=== PATIENT | female | born 1965 | race Caucasian/White ===

== ENCOUNTER → 2020-05-30 10:10 | Outpatient (BNVA) | payer SELFPAY | PROVIDERS: Visit Provider Internal Medicine ==

== ENCOUNTER → 2021-06-09 10:00 | Outpatient (BNVA) | payer SELFPAY | PROVIDERS: Visit Provider Internal Medicine | DX: Z02.79 Encounter for issue of other medical certificate (principal) ==

== ENCOUNTER → 2022-06-08 09:58 | Outpatient (BNVA) | payer SELFPAY | PROVIDERS: Visit Provider Internal Medicine | DX: Z02.79 Encounter for issue of other medical certificate (principal) ==

== ENCOUNTER → 2023-06-09 10:10 | Outpatient (BNVA) | payer SELFPAY | PROVIDERS: Visit Provider Physician Assistant | DX: Z02.79 Encounter for issue of other medical certificate (principal) ==

== ENCOUNTER 2024-04-24 09:43 | Outpatient (AMB) | payer BC, SELFPAY ==
--- NOTE | 2024-04-24 08:51 | A.OFFPC_ITS ---
Vital Signs 04/24/24 09:46 Height 5 ft 4 in Weight 210 lb 2 oz BMI 36.1 BP 142/94 H Blood Pressure Location Rt brachial Position Sitting Pulse 92 Pulse Source Pulse Oximeter Pulse Oximetry (%) 93 Oxygen Delivery Method Room Air Intake Visit Reasons: [id number] Allergies Sulfa (Sulfonamide Antibiotics) Allergy (Intermediate, Verified 04/24/24 09:50) Rash Tobacco use date assessed: 04/24/24 Dental Screening Dental Screen Date: 04/24/24 Did you have a dental visit in the last 12 months?: Yes Did you have a dental problem in the last 6 months where you did not have access to dental care?: No Was dental information given to patient?: Patient has dentist HPI HPI Comments History of Present Illness Details Patient is a 58 year female history of IBS allergic rhinitis kidney stones presenting for follow-up IBS C: Has used lactulose as needed past for constipation. She started to make fruit smoothies in the morning and now is more regula.She tried to use berries initially as lower carb but found this to be too many seeds. Nephrolithiasis: Follows with Dr. Vasqeuz Allergic rhinitis she continues on daily Zyrtec Exercising more. Trying to eat less sweets. Will have cake on special occasions Preventive Colonoscopy: 2016 Kathy Mammo 01/2024 b/l breast us-6 month recommend Pap 12/2022 ROS CONSTITUTIONAL: Denies weight loss, fever and chills. HEENT: Denies changes in vision and hearing. RESPIRATORY: Denies SOB and cough. CV: Denies palpitations and CP GI: Denies abdominal pain, nausea, vomiting and diarrhea. : Denies dysuria and urinary frequency. MSK: Denies new myalgia and joint pain. SKIN: Denies rash and pruritus. NEUROLOGICAL: Denies headache PSYCHIATRIC: Denies recent changes in mood. PHYSICAL EXAM: GENERAL: Alert and oriented x 3. NAD EYES: EOMI. Anicteric. HENT: Moist mucous membranes. No scleral icterus. No cervical lymphadenopathy. LUNGS: Clear to auscultation bilaterally. CARDIOVASCULAR: Regular rate and rhythm. No murmur. No JVD. ABDOMEN: Soft, non-tender +bs EXTREMITIES: No edema. Non-tender. SKIN: No rashes or lesions. Warm. NEUROLOGIC: No focal neurological deficits. CN II-XII grossly intact PSYCHIATRIC: Cooperative. Appropriate mood and affect [facility] Medical History (Updated 04/24/24 @ 15:36 by Usha Sorenson MD) Skin cancer of face Surgical History (Updated 04/24/24 @ 15:36 by Usha Sorenson MD) History of lumpectomy of right breast Family History (Updated 04/24/24 @ 09:54 by Clover Bryant CMA) Father Pancreatic cancer Paternal Grandmother Stroke Social History (Updated 04/24/24 @ 09:52 by Clover Bryant CMA) Household Members: Family Housing: House Alcohol intake: current Alcohol intake frequency: holidays/special occasions only Patient Tobacco Use Status: Current everyday Tobacco user Cigarettes Per Day: 4 Years Smoked: 8 e-Cigarette/Vaping Use: Never Used [employer] service: No Current occupational status: employed ([employer] Cognitive needs: No Hearing needs: No Vision needs: Yes Questionnaire PHQ-9 Over the last 2 weeks, how often have you been bothered by any of the following problems? 1. Little interest or pleasure in doing things: not at all 2. Feeling down, depressed, or hopeless: not at all 3. Trouble falling or staying asleep, or sleeping too much: not at all 4. Feeling tired or having little energy: not at all 5. Poor appetite or overeating: not at all 6. Feeling bad about yourself - or that you are a failure or have let yourself or your family down: not at all 7. Trouble concentrating on things, such as reading the newspaper or watching television: not at all 8. Moving or speaking so slowly that other people could have noticed. Or the opposite - being so fidgety or restless that you have been moving around a lot more than usual: not at all 9. Thoughts that you would be better off or of hurting yourself in some way: not at all Total score: 0 Depression Screening Interpretation: Negative (neg) Depression Screening Done: Yes Source: Developed by Drs. Navin Ibarra, Mony Cardenas, Dante Portillo and colleagues, with an educational remigio from [employer]. Thrive Questionnaire Date Thrive assessed: 04/24/24 I am a: Patient What is your living situation today?: I have a steady place to live Within the past 12 months, did the food you bought not last and you didn't have the money to get more?: Never true Within the past 12 months, did you worry whether your food would run out before you got money to buy more?: Never true Do you have trouble paying for medicines?: No Do you have trouble getting transportation to medical appointments?: No Do you have trouble paying your heating and electricity bill?: No Do you have trouble taking care of your child, family member or friend?: No Do you have trouble with day-to-day activities such as bathing, preparing meals, shopping, managing finances, etc.?: No Are you currently unemployed and looking for a job?: No Are you interested in more education?: No THRIVE Score: 0 AUDIT C Alcohol Use Questionnaire (AUDIT-C) 1. How often do you have a drink containing alcohol?: Monthly or less 3. How often do you have six or more drinks on one occasion?: Never Total Score: 1 KENDALL-7 AMB Questionnaire KENDALL-7 Date KENDALL - 7 assessed: 04/24/24 Feeling nervous, anxious, or on edge: 0 = Not at all Not being able to stop or control worryin = Not at all Worrying too much about different things: 0 = Not at all Trouble relaxin = Not at all Being so restless that it is hard to sit still: 0 = Not at all Becoming easily annoyed or irritable: 0 = Not at all Feeling afraid as if something awful might happen: 0 = Not at all Total KENDALL-7 score (0-4 normal; 5-9 mild; 10-14 moderate; 15-21 severe): 0 Source: Developed by Drs. Navin Ibarra, Mony Cardenas, Dante Portillo and colleagues, with an educational remigio from [employer]. KENDALL-7 Assessment Billing KENDALL-7 Assessment Tool: KENDALL-7 Assessment 77152 Physical exam (Primary Care) Vital Signs: Last Vital Signs Pulse 92 04/24/24 09:46 BP 142/94 H 04/24/24 09:46 Pulse Ox 93 04/24/24 09:46 Oxygen Delivery Method Room Air 04/24/24 09:46 BMI result Body Mass Index 36.1 Tobacco/Smoking Status: Tobacco use Status Tobacco use date assessed 04/24/24 04/24/24 09:58 Patient Tobacco Use Status Current everyday Tobacco 04/24/24 09:58 e-Cigarette/Vaping Use Never Used 04/24/24 09:58 PHQ-9: PHQ-9 Score PHQ-9: Total score 0 04/24/24 10:05 Depression Screening Interpretation: Negative (neg) Thrive Assessment: Date of Thrive Assessment Date Thrive assessed 04/24/24 04/24/24 09:58 Assessment and Plan Assessment & Plan (1) Irritable bowel syndrome (IBS): Code(s): K58.9 - Irritable bowel syndrome without diarrhea Qualifiers: Irritable bowel syndrome type: with constipation Qualified Code(s): K58.1 - Irritable bowel syndrome with constipation Plan: Improved bowel movements with increased fiber (2) History of lumpectomy of right breast: Code(s): Z98.890 - Other specified postprocedural states Plan: UTD breast screening (3) Elevated glucose: Code(s): R73.09 - Other abnormal glucose Plan: Labs ordered Orders: Orders Comprehensive Met. Panel Today R73.09 - Other abnormal glucose Hemoglobin A1c Today R73.09 - Other abnormal glucose Coding Level of Care Code Est Pt Level 4 (60255) Complex EM visit Add On G2211 Diagnoses Irritable bowel syndrome with constipation K58.1 Irritable bowel syndrome type: with constipation History of lumpectomy of right breast Z98.890 Elevated glucose R73.09 Additional Codes KENDALL-7 Assessment Billing - KENDALL-7 Assessment Tool: KENDALL-7 Assessment [id number] ([id number])
[2024-04-24 09:46] VITALS: BP 142/94; PULSE 92; O2SAT 93; BMI 36.1
== END 2024-04-24 10:32 | disposition home or self-care (01) ==
PROVIDERS: PCP Internal Medicine; Visit Provider Internal Medicine
DX: K58.1 Irritable bowel syndrome with constipation (principal); Z98.890 Other specified postprocedural states; R73.09 Other abnormal glucose

== ENCOUNTER → 2024-04-24 09:43 | Outpatient (BNVA) | payer BC, SELFPAY | PROVIDERS: Visit Provider Internal Medicine | DX: K58.1 Irritable bowel syndrome with constipation (principal); R73.09 Other abnormal glucose | CPT/HCPCS: 96127 ==

== ENCOUNTER 2024-04-24 10:38 | Outpatient (REF) | payer BC, SELFPAY ==
[2024-04-24 14:38] LABS: Estimated Average Glucose 134 mg/dL; Hemoglobin A1c % 6.3 % (<6.0); Total Hemoglobin (HGBA1C) 3890.8868 umol/L
[2024-04-24 14:42] LABS: Alanine Aminotransferase 19 U/L (0-31); Albumin Level 4.5 g/dL (3.5-5.0); Alkaline Phosphatase 56 U/L (39-117); Anion Gap 12 (12-20); Aspartate Amino Transferase 15 U/L (5-31); Bilirubin Total 0.3 mg/dL (0.0-1.0); Blood Urea Nitrogen 13 mg/dL (9-16); Calcium 9.5 mg/dL (8.4-10.2); Carbon Dioxide 29 mmol/L (22-29); Chloride 103 mmol/L (96-108); Estimated Glomerular Filt Rate > 60; Glucose Random 97 mg/dL (60-115); Sodium 140 mmol/L (135-145); Total Protein 7.2 g/dL (6.5-8.0)
== END 2024-04-24 10:39 | disposition home or self-care (01) ==
LOC: HO.WFDLDS 10:38
PROVIDERS: Visit Provider Internal Medicine
DX: R73.09 Other abnormal glucose (principal)
CPT/HCPCS: 36415; 80053; 83036

== ENCOUNTER → 2024-05-17 09:52 | Outpatient (BNVA) | payer SELFPAY | PROVIDERS: PCP Internal Medicine; Visit Provider Physician Assistant Medical | DX: Z02.79 Encounter for issue of other medical certificate (principal) ==

== ENCOUNTER 2025-02-20 14:29 | Outpatient (AMB) | payer BC, SELFPAY ==
--- NOTE | 2025-02-20 14:34 | A.OFFPC_ITS ---
Vital Signs 02/20/25 14:38 Height 5 ft 4 in Weight 212 lb 2 oz BMI 36.4 BP 118/74 Blood Pressure Location Rt brachial Position Sitting Respiration 14 Pulse 88 Pulse Source Pulse Oximeter Temp 98.4 F Temp Source Oral Intake Visit Reasons: knee pain Intake Note: Right knee pain Spindle Carver Required: No Allergies Sulfa (Sulfonamide Antibiotics) Allergy (Intermediate, Verified 02/20/25 14:36) Rash Tobacco use date assessed: 02/20/25 Dental Screening Dental Screen Date: 02/20/25 Did you have a dental visit in the last 12 months?: Yes Did you have a dental problem in the last 6 months where you did not have access to dental care?: No Was dental information given to patient?: Patient has dentist HPI HPI Comments History of Present Illness Details Patient is a 58 year female history of IBS allergic rhinitis, kidney stones, prediabetes presenting for follow-up Right knee pain for the past year. Increasing in severity. Is stopping her from exercising. sometimes get knee swelling right ankle swelling. History of right ankle pain. No redness of warmth. no inciting injury IBS C: Has used lactulose as needed past for constipation. Has improved diet and so has had less constipation Nephrolithiasis: Follows with Dr. Vasquez Allergic rhinitis she continues on daily Zyrtec Exercising more. Trying to eat less sweets. Last A1C was 6.3% Preventive Colonoscopy: 2016 Kathy Mammo UTD Pap 12/2022 ROS see HPI PHYSICAL EXAM: GENERAL: Alert and oriented x 3. NAD EYES: EOMI. Anicteric. HENT: Moist mucous membranes. No scleral icterus. No cervical lymphadenopathy. LUNGS: Clear to auscultation bilaterally. CARDIOVASCULAR: Regular rate and rhythm. No murmur. No JVD. ABDOMEN: Soft, non-tender +bs MSK: Mild crepitus, pes anserine fullness, no laxity, no warmth or redness EXTREMITIES: No edema. Non-tender. SKIN: No rashes or lesions. Warm. NEUROLOGIC: No focal neurological deficits. CN II-XII grossly intact PSYCHIATRIC: Cooperative. 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 1. Little interest or pleasure in doing things: not at all 2. Feeling down, depressed, or hopeless: not at all 3. Trouble falling or staying asleep, or sleeping too much: not at all 4. Feeling tired or having little energy: not at all 5. Poor appetite or overeating: not at all 6. Feeling bad about yourself - or that you are a failure or have let yourself or your family down: not at all 7. Trouble concentrating on things, such as reading the newspaper or watching television: not at all 8. Moving or speaking so slowly that other people could have noticed. Or the opposite - being so fidgety or restless that you have been moving around a lot more than usual: not at all 9. Thoughts that you would be better off or of hurting yourself in some way: not at all Total score: 0 Depression Screening Interpretation: Negative Depression Screening Done: Yes 06820 - PHQ-9 Billing: Yes Source: Developed by Drs. Navin Ibarra, Mony Cardenas, Dante Portillo and colleagues, with an educational remigio from [employer]. Thrive Questionnaire Date Thrive assessed: 02/15/25 I am a: Patient What is your living situation today?: I have a place to live, but I am worried about losing it in the future Within the past 12 months, did the food you bought not last and you didn't have the money to get more?: Never true Within the past 12 months, did you worry whether your food would run out before you got money to buy more?: Never true Do you have trouble paying for medicines?: No Do you have trouble getting transportation to medical appointments?: No Do you have trouble paying your heating and electricity bill?: No Do you have trouble taking care of your child, family member or friend?: No Do you have trouble with day-to-day activities such as bathing, preparing meals, shopping, managing finances, etc.?: No Are you currently unemployed and looking for a job?: No Are you interested in more education?: No Please select the resources that you would like help with: None Currently or been in a relationship where the following occur: I choose not to answer THRIVE Score: 1 AUDIT C Alcohol Use Questionnaire (AUDIT-C) 1. How often do you have a drink containing alcohol?: Monthly or less 2. How many drinks containing alcohol do you have on a typical day when you are drinking?: 1 or 2 3. How often do you have six or more drinks on one occasion?: Never Total Score: 1 KENDALL-7 AMB Questionnaire KENDALL-7 Date KENDALL - 7 assessed: 04/24/24 Feeling nervous, anxious, or on edge: 0 = Not at all Not being able to stop or control worryin = Not at all Worrying too much about different things: 0 = Not at all Trouble relaxin = Not at all Being so restless that it is hard to sit still: 0 = Not at all Becoming easily annoyed or irritable: 0 = Not at all Feeling afraid as if something awful might happen: 0 = Not at all Total KENDALL-7 score (0-4 normal; 5-9 mild; 10-14 moderate; 15-21 severe): 0 Source: Developed by Drs. Navin Ibarra, Mony Cardenas, Dante Portillo and colleagues, with an educational remigio from [employer]. Physical exam (Primary Care) Vital Signs: Last Vital Signs Temp 98.4 F 02/20/25 14:38 Pulse 88 02/20/25 14:38 Resp 14 02/20/25 14:38 BP 118/74 02/20/25 14:38 BMI result Body Mass Index 36.4 Tobacco/Smoking Status: Tobacco use Status Tobacco use date assessed 02/20/25 02/20/25 14:42 Patient Tobacco Use Status Current everyday Tobacco 02/20/25 14:36 e-Cigarette/Vaping Use Never Used 02/20/25 14:36 PHQ-9: PHQ-9 Score PHQ-9: Total score 0 02/20/25 14:36 Depression Screening Interpretation: Negative Thrive Assessment: Date of Thrive Assessment Date Thrive assessed 02/15/25 02/20/25 14:36 Currently or been in a relationship where the following occur: I choose not to answer Coding Level of Care Code Est Pt Level 4 (15436) Diagnoses Prediabetes R73.03 Right knee pain, unspecified chronicity M25.561 Chronicity: unspecified Additional Codes PHQ-9 - 69669 - PHQ-9 Billing: Yes ([id number]) Assessment & Plan Assessment & Plan (1) Prediabetes: Code(s): R73.03 - Prediabetes Category: Medical (2) Right knee pain: Code(s): M25.561 - Pain in right knee Category: Medical Qualifiers: Chronicity: unspecified Qualified Code(s): M25.561 - Pain in right knee Plan Right knee pain-xray ordered. Declines prednisone course. Continue prn aleve. Referral to orthopedics Prediabetes-efforts toward weight loss, decrease calories, carbs/sweets Return for cpe Orders: Orders Comprehensive Met. Panel Today K58.1 - Irritable bowel syndrome with constipation, M25.561 - Pain in right knee, R73.03 - Prediabetes Hemoglobin A1c Today K58.1 - Irritable bowel syndrome with constipation, M25.561 - Pain in right knee, R73.03 - Prediabetes Complete Blood Count Auto Diff Today K58.1 - Irritable bowel syndrome with constipation, M25.561 - Pain in right knee, R73.03 - Prediabetes Lipid Panel Today K58.1 - Irritable bowel syndrome with constipation, M25.561 - Pain in right knee, R73.03 - Prediabetes Lyme IgG/IgM w/reflex to WB Today K58.1 - Irritable bowel syndrome with constipation, M25.561 - Pain in right knee, R73.03 - Prediabetes TSH reflex Free T4 Today R63.5 - Abnormal weight gain XR knee RT 3V Today M25.561 - Pain in right knee Referrals Orthopedics Referral M25.561 - Pain in right knee
[2025-02-20 14:38] VITALS: BP 118/74; PULSE 88; RESP 14; TEMP 36.9; BMI 36.4
--- OUTSIDE RECORDS SUMMARY | 2025-02-20 15:09 | XMS_ITS | Patient Health Record ---
Author Organization [facility] Address [address] [place] [address] Care Team Providers Care Business Analysis Specialist Name Role Phone MARIO ALBERTO KAUR, KARLA Primary Care Provider Michelle Cardona Unavailable [phone] Allergies Allergen (clinical drug ingredient) Drug/Non Drug Allergy documented on EMR Reaction Allergy Type Onset Date Status Substance with sulfonamide structure and antibacterial mechanism of action (substance) Sulfa Antibiotics Itching/Rash Drug Allergy Active Results Component Value Reference Range Notes Urinalysis Reviewed date:12/25/2024 04:03:59 PM Interpretation: Performing Lab: Notes/Report: PH 5.0 PROTEIN TRACE WBC TRACE GLUCOSE NEG BLOOD TRACE Reason For Referral No Information Medications Medication SIG (Take, Route, Fr equency, Duration) Notes Start Date End Date Status ZyrTEC Allergy 10 MG 1 tablet Orally Active Tylenol Active Premarin 0.625 MG/GM 1 GRAM Vaginal TWIC E WEEKLY; Duration: 90 days Active Premarin 0.625 MG/GM 1 GRAM Vaginal TWIC E WEEKLY; Duration: 90 days 12/25/2024 Active Social History Tobacco Use: Social History Observation Description Date Details (start date - stop date) Former Smoker NA - NA AUDIT-C (Standard) Question Answer Notes Did you have a drink contain ing alcohol in the past year? Yes How often did you have a dri nk containing alcohol in the past year? Monthly or less (1 point) How many drinks did you have on a typical day when you were drinking in the past year? 1 or 2 drinks (0 point) How often did you have six o r more drinks on one occasion in the past year? Never (0 point) Points 1 Interpretation Negative Tobacco Control (Standard) Question Answer Notes Tobacco use: Former smoker Section Notes: Problems Problem Type SNOMED Code ICD Code Onset Dates Problem Status W/U Status Risk Notes Problem Postmenopausal atrophic vaginitis (38091077) Postmenopausal atrophic vaginitis (N95.2) Active confirmed Problem Unspecified urinary incontinence (R32) Active confirmed Problem Basal cell carcinoma of face (288342727) Basal cell carcinoma of skin of other parts of face (C44.319) Active confirmed Problem Atrophy of vulva (547557041) Atrophy of vulva (N90.5) Active confirmed Problem Screening for malignant neoplasm of breast (139299734) Encounter for screening mammogram for malignant neoplasm of breast (Z12.31) Active confirmed Problem Urinary tract infectious disease (disorder) (25204776) Urinary tract infection, site not specified (599.0) Active confirmed Diag Problem Gynecological examination normal (523432137199426) Routine gynecological examination (V72.31) Active confirmed Major Vital Signs Temperature 97.5 degrees Fahrenheit 12/25/2024 Repe at BP: 140/88 Blood pressure diastolic 92 mm Hg 12/25/2024 Rep eat BP: 140/88 Height 64.75 in 12/25/2024 Repeat BP: 140/ 88 Blood pressure systolic 132 mm Hg 12/25/2024 Repe at BP: 140/88 Weight 219 lbs 12/25/2024 Repeat BP: 140/ 88 BMI 36.72 kg/m2 12/25/2024 Repeat BP: 140/ 88 Encounters Encounter Location Date Provider Diagnosis [facility] [email or web address] [place] [address] 12/25/2024 Michelle Jasso Encounter for gynecological examination (general) (routine) without abnormal findings Z01.419 ; Encounter for screening mammogram for malignant neoplasm of breast Z12.31 and Postmenopausal atrophic vaginitis N95.2 [facility] [email or web address] [place] [address] 12/12/2024 Michelle Jasso Assessments Encounter Date Diagnosis (ICD Code) Assessment Notes Treatment Notes Treatment Clinical Notes Section Notes 12/25/2024 Encounter for gynecological examination (general) (routine) without abnormal findings (ICD-10 - Z01.419) NO PAP TEST, DUE IN 2025. 12/25/2024 Encounter for screening mammogram for malignant neoplasm of breast (ICD-10 - Z12.31) REGULAR MAMMOGRAMS AND SBE'S WERE RECOMMENDED. 12/25/2024 Postmenopausal atrophic vaginitis (ICD-10 - N95.2) CONTINUE PREMARIN CREAM FOR ATROPHIC VAGINITIS. Plan Of Treatment Pending Test Test Name Order Date Ultrasound : Breasts, bilateral 09/15/19 17 MAMMOGRAM, SCREENING 05/22/2015 MAMMOGRAM, SCREENING 12/25/2024 Urinalysis 10/27/2019 [facility] Digital Mammo Screening 11/13/2020 MM Digital Mammo Screening 12/05/2021 MM Digital Mammo Screening 12/22/2022 MM Digital Mammo Screening 09/15/2016 MM Digital Mammo Screening 12/24/2023 MM Digital Mammo Screening 12/25/2024 Screening Bilateral Breast Ultrasound Screening Bilateral Breast Ultrasound Next Appt Details Provider Name:Michelle Rooney linda, 12/27/2025 09:00:00 AM, [address] [facility] [facility], [address], [place], [address], Insurance Providers Payer Name Payer Address Payer Phone Subscriber Number Group Number Insured Name Patient Relationship to Insured Coverage Start Date Coverage End Date [employer] [address] [place] [address] [id number] KATEY BROOKS Self - patient is the insured Medical (General) History Medical History History ICD Code Irritable bowel syndrome with diarrhea K 58.0 Postmenopausal atrophic vaginitis N95.2 Inconclusive mammogram R92.2 Right upper quadrant pain R10.11 Atrophy of vulva N90.5 Unspecified urinary incontinence R32 Mammographic heterogeneous density, bila teral breasts R92.333 Basal cell carcinoma of skin of other pa rts of face C44.319 Surgical History Surgery Date(Month/Year) Colonoscopy Right Lumpectomy Left Breast Biopsy - Benign Skin Cancer Removed from Face - Basal Ce ll Hospitalization History Reason Date(Month/Year) See Surgical Hx 4 Vaginal Deliveries
--- OUTSIDE RECORDS SUMMARY | 2025-02-20 15:09 | XMS_ITS | Clinical Summary ---
Author Organization [facility] ity Address [address] [place] [address] Care Team Providers Care Stone Polisher Hand Name Role Phone sUha Sorenson MD Primary Care Provider Medical History Medical History Date Comments Hematuria 07/17/2015 DX:Hematuria Back pain 07/17/2015 DX:Back pain IBS (irritable bowel syndrome) 07/17/2015 D X:IBS (irritable bowel syndrome) Social History Tobacco Use Types Packs/Day Years Used Date Smoking Tobacco: Never Smokeless Tobacco: Never Alcohol Use Standard Drinks/Week Comments Not Asked 0 (1 standard drink = 0.6 oz pur e alcohol) Comments Unknown Sex and Gender Information Value Date Recorded Sex Assigned at Not on file Legal Sex Female 5:04 AM EST Gender Identity Not on file Sexual Orientation Not on file Obstetrics History Plan of Treatment Health Maintenance Due Date Last Done Comments Breast Cancer Screening 1964 DTaP,Tdap,and Td Vaccines (1 - Tdap) 1983 Cervical Cancer Screening: P ap Smear 1985 Pneumococcal Vaccine: 50+ Ye ars (1 of 1 - PCV) 2014 Zoster Vaccines (1 of 2) 2014 Colorectal Cancer Screening: Colonoscopy 06/28/2022 HIV Screening 06/28/2022 Hepatitis C Screening 06/28/2022 Social Influencers of Health Screening 06/28/2022 COVID-19 Vaccine (1 - 2023-2 5 season) 2024 Depression Screening 07/26/2024 Influenza Vaccine (#1) 2025 RSV Immunization Adult Patie nts (1 - 1-dose 75+ series) 2039 HIB Vaccines Aged Out No longer eligi ble based on patient's age to complete this topic HPV Vaccines Aged Out No longer eligi ble based on patient's age to complete this topic Hepatitis A Vaccines Aged Out No long er eligible based on patient's age to complete this topic Hepatitis B Vaccines Aged Out No long er eligible based on patient's age to complete this topic IPV Vaccines Aged Out No longer eligi ble based on patient's age to complete this topic MMR Vaccines Aged Out No longer eligi ble based on patient's age to complete this topic Meningococcal ACWY Vaccine Aged Out N o longer eligible based on patient's age to complete this topic Meningococcal B Vaccine Aged Out No l onger eligible based on patient's age to complete this topic RSV Immunization Patients Un rashaun 20 months Aged Out No longer eligible b ased on patient's age to complete this topic Varicella Vaccines Aged Out No longer eligible based on patient's age to complete this topic Care Teams Stone Polisher Hand Relationship Specialty Start Date End Date Usha Sorenson MD PCP - General Internal Medicine 06/10/15
== END 2025-02-20 14:59 | disposition home or self-care (01) ==
LOC: HO.HMCFM 14:30
PROVIDERS: PCP Internal Medicine; Visit Provider Internal Medicine
DX: R73.03 Prediabetes (principal); M25.561 Pain in right knee

== ENCOUNTER → 2025-02-20 14:29 | Outpatient (BNVA) | payer BC, SELFPAY | PROVIDERS: PCP Internal Medicine; Visit Provider Internal Medicine | DX: Z13.31 Encounter for screening for depression (principal); R73.03 Prediabetes; M25.561 Pain in right knee | CPT/HCPCS: 96127 ==

== ENCOUNTER → 2025-06-04 10:17 | Outpatient (BNVA) | payer SELFPAY | PROVIDERS: PCP Internal Medicine; Visit Provider Internal Medicine | DX: Z02.79 Encounter for issue of other medical certificate (principal) ==

== ENCOUNTER 2025-06-07 13:28 | Outpatient (REF) | payer BC, SELFPAY ==
[2025-06-07 17:55] LABS: Hematocrit 46.1 % (37.0-47.0); Hemoglobin 14.9 g/dl (12.0-16.0); Mean Corpuscular HGB Conc 32.3 g/dl (31.0-35.0); Mean Corpuscular Hemoglobin 28.1 pg (27.0-33.0); Mean Corpuscular Volume 87.0 fL (80.0-98.0); NRBC Abs Auto 0.000 X10*3/uL (0.0-0.012); NRBC Pct Auto 0.0 /100WBC (0.0-0.2); Platelet Count 352 X10*3/uL (160-400); Red Blood Count 5.30 X10*6/uL (4.20-5.50); White Blood Count 8.3 X10*3/uL (4.8-10.8)
[2025-06-07 18:10] LABS: Alanine Aminotransferase 24 U/L (0-31); Albumin Level 4.7 g/dL (3.5-5.0); Alkaline Phosphatase 57 U/L (39-117); Anion Gap 12 (12-20); Aspartate Amino Transferase 25 U/L (5-31); Blood Urea Nitrogen 14 mg/dL (9-16); Calcium 9.2 mg/dL (8.4-10.2); Carbon Dioxide 28 mmol/L (22-29); Chloride 107 mmol/L (96-108); Estimated Glomerular Filt Rate > 60; Potassium 3.9 mmol/L (3.3-5.1); Sodium 143 mmol/L (135-145); Total Protein 7.2 g/dL (6.5-8.0)
== END 2025-06-07 13:29 | disposition home or self-care (01) ==
LOC: HO.WFDLDS 13:28
PROVIDERS: PCP Internal Medicine; Visit Provider Nurse Practitioner Family
DX: K62.5 Hemorrhage of anus and rectum (principal); Z28.21 Immunization not carried out because of patient refusal; R10.32 Left lower quadrant pain; K58.1 Irritable bowel syndrome with constipation; F17.210 Nicotine dependence, cigarettes, uncomplicated; Z79.899 Other long term (current) drug therapy
CPT/HCPCS: 36415; 80053; 85027; 96127

== ENCOUNTER 2025-06-07 13:28 | Outpatient (AMB) | payer BC, SELFPAY ==
--- NOTE | 2025-06-07 13:31 | A.OFFPC_ITS ---
Vital Signs 06/07/25 13:35 Height 5 ft 4 in Weight 218 lb 6 oz BMI 37.5 BP 142/80 H Blood Pressure Location Lt brachial Position Sitting Respiration 14 Pulse 95 Pulse Source Pulse Oximeter Temp 97.6 F Temp Source Oral Pulse Oximetry (%) 95 Oxygen Delivery Method Room Air Intake Visit Reasons: some bleeding with bowel movements Intake Note: Patient c/o bleeding with bowel movement, lower abd px and radiating to back. Value Advisor Required: No Allergies Sulfa (Sulfonamide Antibiotics) Allergy (Intermediate, Verified 06/07/25 13:49) Rash Medication List - Last Reconciled 06/07/25 by Kia Boland, MANAGER GYN- cetirizine (Zyrtec) 10 mg PO DAILY PRN conjugated estrogens (Premarin) 0.625 mg vaginal DAILY Tobacco use date assessed: 06/07/25 Dental Screening Dental Screen Date: 06/07/25 Did you have a dental visit in the last 12 months?: Yes Did you have a dental problem in the last 6 months where you did not have access to dental care?: No Was dental information given to patient?: Patient has dentist HPI HPI Comments History of Present Illness Details 59 year female history of IBS allergic r hinitis, kidney stones, prediabetes History of Present Illness The patient is a 59-year-old female presenting with concerns of rectal bleeding. Lower gastrointestinal bleeding: - The patient reports an episode of rect al bleeding that started on Wednesday after she consumed reheated kielbasa, which she suspects may have caused her illness. - The initial episode on Wednesday involved nausea w/o vomiting, diarrhea, and passing blood clots per rectum over the course of an hour. - She continued to pass clots with her s tool on Wednesday, followed by dark red blood on Wednesday and Wednesday, with symptoms resolving by . - She also experienced associated Left l ower abdominal pain, which was initially in her back and is now in the front, and nausea that persisted through Wednesday. Colitis: - The patient has a history of colitis w ith scarring, which was identified on a previous colonoscopy. - Her most recent colonoscopy was in 6. - She reports significant work-related s tress and wonders if this could have triggered a colitis flare. Tobacco Use: - The patient reports smoking 4 cigarett es per day. Past Medical History - Past Medical History: Colitis with sca rring, arthritis in knees. - Past Surgical History: Denies abdomina l surgeries. - Procedures: Colonoscopy in 2016. - Social History: Smokes 4 cigarettes da arina. - Allergies: Rash with sulfa drugs. Review of Systems - Constitutional: Reports unintentional weight gain. - Gastrointestinal: Reports lower abdomi nal pain, a single episode of vomiting, nausea, initial diarrhea followed by soft stools, and hematochezia (both clots and dark red blood). Reports feeling like she has to have a bowel movement but nothing comes out. - Genitourinary: Denies urinary issues. Physical Exam General: Well developed, well nourished, in no acute distress. Appears stated age. Head: Normocephalic, atraumatic. Eyes: Pupils are equal, round and reactive to light and accommodation. Conjunctivae are clear. Scleras nonicteric bilat Lungs: Clear to auscultation bilaterally. No rales, rhonchi or wheeze noted. Good air flow in all rainey. Heart: Regular rate and rhythm. No murmurs, click, rubs or gallops are noted. Abdomen: Bowel sounds present in all quadrants. The abdomen is soft, mildly tender w/o rebound or peritoneal signs in the LLQ, with no masses or organomegaly noted. No hernias are noted. rectal exam benign. Psych: Mood and affect appropriate. Results - Stool Guaiac Test: Negative for occult blood. Medical Decision Making The patient is a 59-year-old female presenting with an acute episode of lower gastrointestinal bleeding, lower abdominal pain, and a single episode of nausea w/o vomiting, which began Wednesday after consuming reheated meat. Her symptoms included passing clots per rectum, which has since resolved. She has a history of colitis with scarring and wonders if her current symptoms, possibly exacerbated by work stress, represent a flare. Physical examination revealed left lower abdominal tenderness, but the in-office stool guaiac test was negative. The differential diagnosis includes infectious colitis, a flare of her underlying colitis, or diverticulitis. While a CT scan of the abdomen was considered, the patient agreed to a trial of empiric antibiotic therapy first. The plan is to start Ciprofloxacin, which provides coverage for both infectious etiologies and diverticulitis. Blood work will be drawn today to assess her blood count and for signs of infection. The patient will follow up in 1-2 weeks, and if her symptoms do not improve, imaging will be arranged. She is also due for a screening colonoscopy. Plan 1. Lower Gastrointestinal Bleeding / Lida pected Colitis/Diverticulitis - The differential diagnosis includes in fectious colitis, a flare of known colitis, or diverticulitis. - Blood work, including a blood count, w ill be ordered today. - Ciprofloxacin will be prescribed to be taken twice daily for seven days to cover for potential infectious causes or diverticulitis. - The patient was counseled to take the medication with food, stay hydrated, and was warned of the rare side effect of tendon rupture. - If symptoms do not improve with antibi otics, the next step will be to proceed with imaging. - The patient will schedule a follow-up appointment with Dr. Sorenson in one to two weeks. 2. Health Maintenance - The patient is due for a screening col onoscopy. - The patient declined a flu shot today. Patient Instructions - Go to the lab to have your blood drawn today after your visit. - Before you leave, please see the front end application developer to schedule a follow-up appointment with Dr. Sorenson in about one to two weeks. - A prescription for Ciprofloxacin has b een sent to [facility] in [place]. Start taking it tonight. Take one pill two times a day for seven days. - Take the antibiotic with food to preve nt an upset stomach and drink plenty of fluids. - This medication has a rare side effect of pain or cramping in your Achilles tendon (the back of your heel). If you experience this, stop taking the medication immediately. - If you are not feeling better after fi nishing the antibiotic, you should come in for a follow-up visit. - Your lab results will be sent to you ramiro the patient portal. Consent Verbal consent was obtained from the patient before performing the rectal exam. The procedure was explained, including the use of a lubricated finger to obtain a stool sample for testing, and the patient was informed she could stop the exam at any time. The patient also participated in shared decision-making regarding the plan of care, agreeing to a trial of antibiotics and blood work before proceeding with imaging. Patient was informed and verbally consented to the use of an ambient scribe for clinic note documentation during this visit. Total time spent caring for the patient today was 30 minutes. This includes time spent before the visit reviewing the chart, time spent during the visit, and time spent after the visit on documentation, reviewing laboratory results, diagnostic imaging, medications, performing a medically necessary evaluation, counseling on diagnoses, care coordination, ordering appropriate tests, ordering appropriate medications, review of tests performed by other providers, reporting test results with the patient, communication with other healthcare providers. 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 1. Little interest or pleasure in doing things: not at all 2. Feeling down, depressed, or hopeless: not at all 3. Trouble falling or staying asleep, or sleeping too much: not at all 4. Feeling tired or having little energy: not at all 5. Poor appetite or overeating: not at all 6. Feeling bad about yourself - or that you are a failure or have let yourself or your family down: not at all 7. Trouble concentrating on things, such as reading the newspaper or watching television: not at all 8. Moving or speaking so slowly that other people could have noticed. Or the opposite - being so fidgety or restless that you have been moving around a lot more than usual: not at all 9. Thoughts that you would be better off or of hurting yourself in some way: not at all Total score: 0 Depression Screening Interpretation: Negative Depression Screening Done: Yes 82843 - PHQ-9 Billing: Yes Source: Developed by Drs. Navin Ibarra, Dante Schroeder and colleagues, with an educational remigio from [employer]. Thrive Questionnaire Date Thrive assessed: 06/07/25 I am a: Patient What is your living situation today?: I have a place to live, but I am worried about losing it in the future Within the past 12 months, did the food you bought not last and you didn't have the money to get more?: Never true Within the past 12 months, did you worry whether your food would run out before you got money to buy more?: Never true Do you have trouble paying for medicines?: No Do you have trouble getting transportation to medical appointments?: No Do you have trouble paying your heating and electricity bill?: No Do you have trouble taking care of your child, family member or friend?: No Do you have trouble with day-to-day activities such as bathing, preparing meals, shopping, managing finances, etc.?: No Are you currently unemployed and looking for a job?: No Are you interested in more education?: No Please select the resources that you would like help with: None Currently or been in a relationship where the following occur: I choose not to answer THRIVE Score: 1 KENDALL-7 AMB Questionnaire KENDALL-7 Date KENDALL - 7 assessed: 06/07/25 Feeling nervous, anxious, or on edge: 0 = Not at all Not being able to stop or control worryin = Not at all Worrying too much about different things: 0 = Not at all Trouble relaxin = Not at all Being so restless that it is hard to sit still: 0 = Not at all Becoming easily annoyed or irritable: 0 = Not at all Feeling afraid as if something awful might happen: 0 = Not at all Total KENDALL-7 score (0-4 normal; 5-9 mild; 10-14 moderate; 15-21 severe): 0 Source: Developed by Drs. Navin Ibarra, Dante Schroeder and colleagues, with an educational remigio from [employer]. KENDALL-7 Assessment Billing KENDALL-7 Assessment Tool: KENDALL-7 Assessment 13229 Physical exam (Primary Care) Vital Signs: Last Vital Signs Temp 97.6 F 06/07/25 13:35 Pulse 95 06/07/25 13:35 Resp 14 06/07/25 13:35 BP 142/80 H 06/07/25 13:35 Pulse Ox 95 06/07/25 13:35 Oxygen Delivery Method Room Air 06/07/25 13:35 BMI result Body Mass Index 37.5 Tobacco/Smoking Status: Tobacco use Status Tobacco use date assessed 06/07/25 06/07/25 13:34 Patient Tobacco Use Status Current everyday Tobacco 06/07/25 13:34 e-Cigarette/Vaping Use Never Used 06/07/25 13:34 PHQ-9: PHQ-9 Score PHQ-9: Total score 0 06/07/25 13:49 Depression Screening Interpretation: Negative Thrive Assessment: Date of Thrive Assessment Date Thrive assessed 06/07/25 06/07/25 13:34 Currently or been in a relationship where the following occur: I choose not to answer GI Rectal Exam - Female: visual inspection normal, normal sphincter tone and heme negative stool Results AMB Fecal Occult Blood X1 AMB Fecal Occult Blood X1 Negative Last Edit by Kia Bloand, MANAGER [facility] on 06/07/25 14:42 Coding Level of Care Code Est Pt Level 4 (58429) Complex EM visit Add On G2211 Diagnoses Rectal bleeding K62.5 Tobacco dependence F17.200 LLQ pain R10.32 Irritable bowel syndrome with constipation K58.1 Irritable bowel syndrome type: with constipation Influenza vaccination declined Z28.21 Additional Codes KENDALL-7 Assessment Billing - KENDALL-7 Assessment Tool: KENDALL-7 Assessment 56225 ([id number]) PHQ-9 - 95731 - PHQ-9 Billing: Yes ([id number]) Assessment & Plan Assessment & Plan (1) Rectal bleeding: Code(s): K62.5 - Hemorrhage of anus and rectum Category: Medical (2) Tobacco dependence: Code(s): F17.200 - Nicotine dependence, unspecified, uncomplicated Category: Medical (3) LLQ pain: Code(s): R10.32 - Left lower quadrant pain Category: Medical (4) Irritable bowel syndrome (IBS): Code(s): K58.9 - Irritable bowel syndrome, unspecified Category: Medical Qualifiers: Irritable bowel syndrome type: with constipation Qualified Code(s): K58.1 - Irritable bowel syndrome with constipation (5) Influenza vaccination declined: Onset Date: ~06/07/25 Code(s): Z28.21 - Immunization not carried out because of patient refusal Category: Medical Plan . Orders: Orders Complete Blood Count no Diff Today K62.5 - Hemorrhage of anus and rectum Comprehensive Met. Panel Today K62.5 - Hemorrhage of anus and rectum AMB Stool Occult Bld Single Today K62.5 - Hemorrhage of anus and rectum Medications: New ciprofloxacin HCl 500 mg PO BID 7 tabs 0RF
[2025-06-07 13:35] VITALS: BP 142/80; PULSE 95; RESP 14; TEMP 36.4; O2SAT 95; BMI 37.5
--- OUTSIDE RECORDS SUMMARY | 2025-06-07 16:46 | XMS_ITS | Encounter Summary ---
Author Organization [facility] Address [address] [place] [address] Care Team Providers Care Fur Blender Name Role Phone Usha Gordon MD Primary Care Provider Herberth magallon Encounter Details Date Type Department Care Team Description 09/17/2017 Orders Only Medicine/Pediatrics - [address] [address] Usha Gordon MD Social History Tobacco Use Types Packs/Day Years Used Date Smoking Tobacco: Never Alcohol Use Standard Drinks/Week Comments Not Asked 0 (1 standard drink = 0.6 oz pur e alcohol) Sex Assigned at Date Recorded Not on file documented as of this encounter Plan of Treatment Not on file documented as of this encounter Visit Diagnoses Not on filedocumented in this encounter Care Teams Fur Blender Relationship Specialty Start Date End Date Usha Gordon MD PCP - General Internal Medicine 06/10/15 documented as of this encounter
--- OUTSIDE RECORDS SUMMARY | 2025-06-07 16:46 | XMS_ITS | Encounter Summary ---
Author Organization [facility] Address [address] [place] [address] Care Team Providers Care Insulation Power Unit Tender Name Role Phone Usha Gordon MD Primary Care Provider Herberth magallon Encounter Details Date Type Department Care Team Description 01/06/2016 Dye Feeder Report Medical Records [address] [place] [id number] Cristina Leyva MD Social History Tobacco Use Types Packs/Day [...] on filedocumented in this encounter Care Teams Insulation Power Unit Tender Relationship Specialty Start Date End Date Usha Gordon MD PCP - General Internal Medicine 06/10/15 documented as of this encounter
--- OUTSIDE RECORDS SUMMARY | 2025-06-07 16:46 | XMS_ITS | Encounter Summary ---
Author Organization [facility] Address [address] [place] [address] Care Team Providers Care Shell Sieve Operator Name Role Phone Usha Gordon MD Primary Care Provider Unavaila ble Reason for Visit * Reason Onset Date Comments REFERRAL 08/25/2017 Encounter Details Date Type Department Care Team Description 08/25/2017 Telephone Physiatry - [address] [address] Alli Couch, REFERRAL Social History Tobacco Use Types Packs/Day Years Used Date Smoking Tobacco: Never Alcohol Use Standard Drinks/Week Comments Not Asked 0 (1 standard drink = 0.6 oz pur e alcohol) Sex Assigned at Date Recorded Not on file documented as of this encounter Miscellaneous Notes * Telephone Encounter - Sawyer Thomson - 08/25/2017 9:01 AM EST Patient was referred to Physiatry for RIGHT ARM/SHOULDER PAIN. Tried to contact patient several times by phone and sent out letter with no response. Patient will be taken off of referrals report. FYI documented in this encounter Plan of Treatment Not on file documented as of this encounter Visit Diagnoses Not on filedocumented in this encounter Care Teams Shell Sieve Operator Relationship Specialty Start Date End Date Usha Gordon MD PCP - General Internal Medicine 06/10/15 documented as of this encounter
--- OUTSIDE RECORDS SUMMARY | 2025-06-07 16:46 | XMS_ITS | Encounter Summary ---
Author Organization [facility] Address [address] [place] [address] Care Team Providers Care Medical Billing Coordinator Name Role Phone Usha Gordon MD Primary Care Provider Herberth magallon Encounter Details Date Type Department Care Team Description 10/22/2017 Pt. Non Urgent Medical Question Medicine/Pediatrics - [address] [address] sUha Gordon MD Social History Tobacco Use Types Packs/Day Years Used Date Smoking Tobacco: Never Alcohol Use Standard Drinks/Week Comments Not Asked 0 (1 standard drink = 0.6 oz pur e alcohol) Sex Assigned at Date Recorded Not on file documented as of this encounter Progress Notes * Lawanda Kumar L.P.N. - 10/25/2017 8:51 AM EDTFrom: Phylicia Kalani To: Usha Gordon MD Sent: 10/22/2017 3:22 PM EDT Subject: pain is back , I wanted to let you know thruthfully I haven't been taking my medicine faithfully and I went out tohave a few cocktails with cream. Ever since the cocktais the sharp pain is back and it's been a week with the pain back. documented in this encounter Plan of Treatment Not on file documented as of this encounter Visit Diagnoses Not on filedocumented in this encounter Care Teams Medical Billing Coordinator Relationship Specialty Start Date End Date Usha Gordon MD PCP - General Internal Medicine 06/10/15 documented as of this encounter
--- OUTSIDE RECORDS SUMMARY | 2025-06-07 16:46 | XMS_ITS | Patient Health Record ---
Author Organization [facility] Address [address] [place] [address] Care Team Providers Care A Class Lineman Name Role Phone MARIO ALBERTO KAUR, KARLA Primary Care Provider Michelle Cardona Unavailable [phone] Allergies Allergen (clinical drug ingredient) Drug/Non Drug [...] Status Risk Notes Problem Postmenopausal atrophic vaginitis (79689391) Postmenopausal atrophic vaginitis (N95.2) Active confirmed Problem Urinary incontinence (374822332) Unspecified urinary incontinence (R32) Active confirmed Problem Basal cell carcinoma of face (226041351) Basal cell carcinoma of skin of other parts of face (C44.319) Active confirmed Problem Atrophy of vulva (151883116) Atrophy of vulva (N90.5) Active confirmed Problem Screening for malignant neoplasm of breast (238077898) Encounter for screening mammogram for malignant neoplasm of breast (Z12.31) Active confirmed Problem Urinary tract infectious disease (disorder) (28209683) Urinary tract infection, site not specified (599.0) Active confirmed Diag Problem Gynecological examination normal (662900075162510) Routine gynecological examination (V72.31) Active confirmed Major [...] 88 Encounters Encounter Location Date Provider Diagnosis [facility] [address] [place] [address] 12/25/2024 Michelle Jasso Encounter for gynecological examination (general) (routine) without abnormal findings Z01.419 ; Encounter for screening mammogram for malignant neoplasm of breast Z12.31 and Postmenopausal atrophic vaginitis N95.2 [facility] [address] [place] [address] 12/12/2024 Michelle Jasso [facility] [address] [place] [address] 06/07/2025 Michelle Jasso Assessments Encounter Date Diagnosis (ICD [...] Breast Ultrasound Next Appt Details Provider Name:Michelle mckeon, 12/27/2025 09:00:00 AM, [address] [facility], [address], [place], [address], Insurance Providers Payer Name Payer Address Payer Phone Subscriber Number Group Number Insured Name Patient Relationship to Insured Coverage Start Date Coverage End Date [employer] [place] [address] [place] [address] [phone] [id number] KATEY BROOKS Self - patient is [...]
--- OUTSIDE RECORDS SUMMARY | 2025-06-07 16:46 | XMS_ITS | Clinical Summary ---
Author Organization [facility] Address [address] [place] [address] Care Team Providers Care Foam Cutting Supervisor Name Role Phone Usha Sorenson MD Primary Care Provider Medical History [...] Last Done Comments Breast Cancer Screening 1965 Colorectal Cancer Screening: Colonoscopy 1964 DTaP,Tdap,and Td Vaccines (1 - Tdap) 1983 Cervical Cancer Screening: P ap Smear 1985 Pneumococcal Vaccine: 50+ Ye ars (1 of 1 - PCV) 2014 Zoster Vaccines (1 of 2) 2014 HIV Screening 06/28/2022 Hepatitis C Screening 06/28/2022 Social Influencers of Health Screening 06/28/2022 Depression Screening 07/26/2024 COVID-19 Vaccine (1 - 2024-2 6 season) 2025 Influenza Vaccine (#1) 2025 RSV Immunization Adult [...] age to complete this topic Care Teams Foam Cutting Supervisor Relationship Specialty Start Date End Date Usha Sorenson MD PCP - General Internal Medicine 06/10/15
--- OUTSIDE RECORDS SUMMARY | 2025-06-07 16:46 | XMS_ITS | Clinical Summary ---
Author Organization [facility] Address [address] [place] [address] Care Team Providers Care Residential Installer Name Role Phone Usha Gordon MD Primary Care Provider Unavaila ble Allergies Active Allergy Reactions Severity Noted Date Comments Sulfa Drugs Hives/Urticaria 07/17/2015 Medications Medication Sig Dispensed Refills Start Date End Date Status PREMARIN vaginal cream twice a week. 0 09/16/2017 Active Triamcinolone Acetonide (NASACORT ALLERGY 24HR) 55 MCG/ACT Aerosol 2 Sprays by Nasal route daily. 1 Bottle 0 09/29/2019 Active cetirizine (ZYRTEC) 10 MG tablet Take 1 Tab by mouth daily for 360 days. 30 Tab 2 12/22/2019 Active Active Problems Problem Noted Date Allergic rhinitis 09/29/2019 Hematuria 07/17/2015 Back pain 07/17/2015 IBS (irritable bowel syndrome) 5 Social History Tobacco Use Types Packs/Day Years Used Date Smoking Tobacco: Never Smokeless Tobacco: Never Alcohol Use Standard Drinks/Week Comments Not Asked 0 (1 standard drink = 0.6 oz pur e alcohol) Sex Assigned at Date Recorded Not on file Last Filed Vital Signs Vital Sign Reading Time Taken Comments Blood Pressure 122/64 09/29/2019 10:21 AM EST Pulse 80 09/29/2019 10:21 AM EST Temperature 36.9 C (98.4 F) 09/29/2019 10:21 AM EST Respiratory Rate 16 09/29/2019 10:21 AM EST Oxygen Saturation 97% 06/27/2018 9:34 AM EST Inhaled Oxygen Concentration - - Weight 88 kg (194 lb) 09/29/2019 10:21 AM EST Height 163.8 cm (5' 4.5 ) 09/29/2019 10:21 AM ES T Body Mass Index 32.79 09/29/2019 10:21 AM EST Plan of Treatment Health Maintenance Due Date Last Done Comments Covid-19 Vaccine (#1) 01[birth year]04/1966 HEPATITIS C SCREENING 1982 DTAP/TDAP/TD (1 - Tdap) 1983 CERVICAL CANCER SCREENING 1985 COLON CANCER SCREENING 2014 SHINGLES VACCINE (1 of 2) 2014 BASELINE HEALTH EXAM 40-64 07/17/2017 07/17/2015, MAMMOGRAM 03/04/2018 03/04/2017 (Exte rnal Completion) CHOLESTEROL SCREENING 07/17/2020 07/17/2015 BMI CHECK/ADVISE 07/26/2024 09/17/2017, , 12/30/2015, Additional history exists INFLUENZA (#1) 2025 PNEUMOCOCCAL VACCINE FOR HIG H RISK PATIENTS (#1) 2029 Care Teams Residential Installer Relationship Specialty Start Date End Date Usha Gordon MD PCP - General Internal Medicine 06/10/15
== END 2025-06-07 14:05 | disposition home or self-care (01) ==
LOC: HO.HMCFM 13:29
PROVIDERS: PCP Internal Medicine; Visit Provider Nurse Practitioner Family
DX: K62.5 Hemorrhage of anus and rectum (principal); F17.200 Nicotine dependence, unspecified, uncomplicated; R10.32 Left lower quadrant pain; K58.1 Irritable bowel syndrome with constipation; Z28.21 Immunization not carried out because of patient refusal

== ENCOUNTER 2025-06-19 12:59 | Outpatient (AMB) | payer BC, SELFPAY ==
--- NOTE | 2025-06-19 13:03 | A.OFFPC_ITS ---
Vital Signs 06/19/25 13:05 BMI Reason not done Patient refused/unable BP 122/66 Blood Pressure Location Lt brachial Position Sitting Respiration 14 Pulse 89 Pulse Source Pulse Oximeter Temp 97.9 F Temp Source Oral Pulse Oximetry (%) 96 Oxygen Delivery Method Room Air Intake Visit Reasons: 1-2 weeks w/ Dr Rodriguez (FU GI complaints) per mari Intake Note: Follow up Chronic Specialist Required: No Allergies Sulfa (Sulfonamide Antibiotics) Allergy (Intermediate, Verified 06/19/25 13:04) Rash Tobacco use date assessed: 06/19/25 Dental Screening Dental Screen Date: 06/07/25 HPI HPI Comments History of Present Illness Details Patient is a 59 year female history of IBS allergic rhinitis, kidney stones, prediabetes presenting for follow-up Right knee pain improved after seeing orthopedics and receiving steroid injection. IBS C: Has used lactulose as needed past for constipation. Has improved diet and so has had less constipation. She recently was seen by my colleaugue for a few day history of LLQ pain and some blood clots in the stool. She improved on a course of ciprofloxacin Nephrolithiasis: Follows with Dr. Vasquez Allergic rhinitis she continues on daily Zyrtec Exercising more. Trying to eat less sweets. Last A1C was 6.3% Preventive Colonoscopy: 2016 Kathy-referred today Mammo UTD Pap 12/2022 ROS see HPI PHYSICAL EXAM: GENERAL: Alert and oriented x 3. NAD EYES: EOMI. Anicteric. HENT: Moist mucous membranes. No scleral icterus. No cervical lymphadenopathy. LUNGS: Clear to auscultation bilaterally. CARDIOVASCULAR: Regular rate and rhythm. No murmur. No JVD. ABDOMEN: Soft, non-tender +bs MSK: Mild crepitus, pes anserine fullness, no laxity, no warmth or redness EXTREMITIES: No edema. Non-tender. SKIN: No rashes or lesions. Warm. NEUROLOGIC: No focal neurological deficits. CN II-XII grossly intact PSYCHIATRIC: Cooperative. Appropriate mood and affect [facility] Medical History Skin cancer of face Surgical History History of lumpectomy of right breast Family History Father Pancreatic cancer Paternal Grandmother Stroke Social History Household Members: Family Housing: House Alcohol intake: current Alcohol intake frequency: holidays/special occasions only Patient Tobacco Use Status: Current everyday Tobacco user Cigarettes Per Day: 4 Years Smoked: 8 e-Cigarette/Vaping Use: Never Used Second Hand Smoke Exposure: No service: No Current occupational status: employed ([employer] 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 Current occupational exposures/hazards: No Cognitive needs: No Hearing needs: No Vision needs: Yes Questionnaire Thrive Questionnaire Date Thrive assessed: 02/15/25 I am a: Patient What is your living situation today?: I have a place to live, but I am worried about losing it in the future Within the past 12 months, did the food you bought not last and you didn't have the money to get more?: Never true Within the past 12 months, did you worry whether your food would run out before you got money to buy more?: Never true Do you have trouble paying for medicines?: No Do you have trouble getting transportation to medical appointments?: No Do you have trouble paying your heating and electricity bill?: No Do you have trouble taking care of your child, family member or friend?: No Do you have trouble with day-to-day activities such as bathing, preparing meals, shopping, managing finances, etc.?: No Are you currently unemployed and looking for a job?: No Are you interested in more education?: No Please select the resources that you would like help with: None Currently or been in a relationship where the following occur: I choose not to answer THRIVE Score: 1 KENDALL-7 AMB Questionnaire KENDALL-7 Date KENDALL - 7 assessed: 06/07/25 Source: Developed by Drs. Navin Ibarra, Mony Cardenas, Dante Portillo and colleagues, with an educational remigio from [employer]. Physical exam (Primary Care) Vital Signs: Last Vital Signs Temp 97.9 F 06/19/25 13:05 Pulse 89 06/19/25 13:05 Resp 14 06/19/25 13:05 BP 122/66 06/19/25 13:05 Pulse Ox 96 06/19/25 13:05 Oxygen Delivery Method Room Air 06/19/25 13:05 Tobacco/Smoking Status: Tobacco use Status Tobacco use date assessed 06/19/25 06/19/25 13:07 Patient Tobacco Use Status Current everyday Tobacco 06/19/25 13:04 e-Cigarette/Vaping Use Never Used 06/19/25 13:04 Thrive Assessment: Date of Thrive Assessment Date Thrive assessed 02/15/25 06/19/25 13:04 Currently or been in a relationship where the following occur: I choose not to answer Coding Level of Care Code Complex visit Add On G2211 Diagnoses Colitis K52.9 Right shoulder pain, unspecified chronicity M25.511 Chronicity: unspecified Assessment & Plan Assessment & Plan (1) Colitis: Code(s): K52.9 - Noninfective gastroenteritis and colitis, unspecified Category: Medical (2) Right shoulder pain: Code(s): M25.511 - Pain in right shoulder Category: Medical Qualifiers: Chronicity: unspecified Qualified Code(s): M25.511 - Pain in right shoulder Plan Colitis-resolved. Referred to GI for consideration of colonoscopy right shoulder pain-ibuprofen. try to limit to work days Orders: Referrals Gastroenterology Referral K62.5 - Hemorrhage of anus and rectum, R10.32 - Left lower quadrant pain Medications: New ibuprofen 800 mg PO Q8H PRN 90 tabs 3RF pain
[2025-06-19 13:05] VITALS: BP 122/66; PULSE 89; RESP 14; TEMP 36.6; O2SAT 96
--- OUTSIDE RECORDS SUMMARY | 2025-06-19 16:44 | XMS_ITS | Patient Health Record ---
Author Organization [facility] Address [address] [place] [address] Care Team Providers Care Tool Lapper Hand Name Role Phone MARIO ALBERTO KAUR, KARLA Primary Care Provider Michelle Cardona Unavailable [phone] Allergies Allergen (clinical drug ingredient) Drug/Non Drug [...] Status Risk Notes Problem Postmenopausal atrophic vaginitis (15180281) Postmenopausal atrophic vaginitis (N95.2) Active confirmed Problem Urinary incontinence (042974388) Unspecified urinary incontinence (R32) Active confirmed Problem Basal cell carcinoma of face (386565100) Basal cell carcinoma of skin of other parts of face (C44.319) Active confirmed Problem Atrophy of vulva (144144139) Atrophy of vulva (N90.5) Active confirmed Problem Screening for malignant neoplasm of breast (242413620) Encounter for screening mammogram for malignant neoplasm of breast (Z12.31) Active confirmed Problem Urinary tract infectious disease (disorder) (70809672) Urinary tract infection, site not specified (599.0) Active confirmed Diag Problem Gynecological examination normal (729167037513170) Routine gynecological examination (V72.31) Active confirmed Major [...] Encounters Encounter Location Date Provider Diagnosis [facility] [address] [place] [address] 12/25/2024 Michelle Jasso Encounter for gynecological examination (general) (routine) without abnormal findings Z01.419 ; Encounter for screening mammogram for malignant neoplasm of breast Z12.31 and Postmenopausal atrophic vaginitis N95.2 [facility] [address] [place] [address] 12/12/2024 Michelle Jasso [facility] [address] [address] [place] [address] 06/07/2025 Michelle Jasso Assessments Encounter Date Diagnosis [...] Name:Michelle mckeon, 12/27/2025 09:00:00 AM, [address], [address], [place], [address], Insurance Providers Payer Name Payer Address Payer Phone Subscriber Number Group Number Insured Name Patient Relationship to Insured Coverage Start Date Coverage End Date [employer] [place] [address] [place] [address] [id number] KATEY BROOKS Self - patient is [...]
== END 2025-06-19 13:29 | disposition home or self-care (01) ==
LOC: HO.HMCFM 13:00
PROVIDERS: PCP Internal Medicine; Visit Provider Internal Medicine
DX: M25.511 Pain in right shoulder (principal); K58.1 Irritable bowel syndrome with constipation